=== PATIENT | male | born 1970 | race Caucasian/White ===

== ENCOUNTER 2025-03-17 17:35 | Emergency (ER) | payer OTHER ==
[~2025-03-17] VITALS: Ht 175.3 cm; Wt 106.5 kg
[2025-03-17 18:06] LABS: BASOPHILS 1.0 % (0.2-1.2); EOSINOPHILS 0.5 % (0.8-7.0); LYMPHOCYTES 17.9 % (21.8-53.1); MCH 32.6 PG (25.7-32.2); MCHC 34.1 g/dL (32.3-36.5); MCV 95.6 fL (79.0-92.2); MONOCYTES 10.4 % (5.3-12.2); NEUTROPHILS 70.0 % (34.0-67.9); RBC 2.73 M/uL (4.63-6.08)
[2025-03-17 18:16] LABS: INR 1.33 (0.80-1.30); PROTIME 16.0 Sec (11.2-14.2)
[2025-03-17 18:21] LABS: ALT (SGPT) 48.0 U/L (14-59); AST (SGOT) 54.0 U/L (15-37); GLOMERULAR FILTRATION RATE,EST 88.0 mL/min (>60); PROTEIN, TOTAL 6.5 g/dL (6.4-8.2); UREA NITROGEN 13.0 mg/dL (7-18)
[2025-03-17 18:47] LABS: ABO O; ANTIBODY SCREEN NEGATIVE; RH POSITIVE
[2025-03-17] MEDS ORDERED: MORPHINE SULFATE 4 MG/ML VIAL IV ONE (20:00)
[2025-03-17] MEDS ORDERED: TRANEXAMIC ACID IN NACL,ISO-OS 1,000 MG/100 ML PIGGYBACK IV ONE (21:00)
[2025-03-17] MEDS ORDERED: FUROSEMIDE 40 MG/4 ML VIAL IV ONE (21:00)
[2025-03-17] MEDS ORDERED: LASIX20 MG PO (21:14)
[2025-03-17] MEDS ORDERED: SPIRONOLACTONE25 MG PO (21:14)
[2025-03-17] MEDS ORDERED: LACTULOSE10 GM/15 M PO (21:14)
[2025-03-17] MEDS ORDERED: FERROUS SULFAT325 M2 PO (21:15)
[2025-03-17] MEDS ORDERED: PROPRANOLOL HCL10 MG PO (21:15)
[2025-03-17 21:16] LABS: IS CROSSMATCH COMPATIBLE
[2025-03-17 21:18] LABS: ABO O
[2025-03-17 21:19] LABS: RH POSITIVE
[2025-03-18 01:00] VITALS: BP 158/90
== END 2025-03-18 01:08 | disposition home or self-care (01) ==
LOC: ED 17:35
PROVIDERS: Emergency Medicine; Family Medicine
DX: K92.1 Melena (principal); K70.31 Alcoholic cirrhosis of liver with ascites; E11.9 Type 2 diabetes mellitus without complications; I10 Essential (primary) hypertension; Z91.040 Latex allergy status
CPT/HCPCS: 36415; 36430; 74177; 80053; 85025; 85610; 85730; 86850; 86900; 86901; 86922; 96375; 99285-25; J1938; J2270; J2405; P9016; Q9967

== ENCOUNTER 2025-03-24 14:50 | Emergency (ER) | payer OTHER ==
[~2025-03-24] VITALS: Ht 175.3 cm; Wt 110.8 kg
[~2025-03-24 14:50] MED LIST: FERROUS SULFAT325 M2 PO; LACTULOSE10 GM/15 M PO; LASIX20 MG PO; PROPRANOLOL HCL10 MG PO; SPIRONOLACTONE25 MG PO
--- OUTSIDE RECORDS SUMMARY | 2025-03-24 14:57 | XMS ---
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 [place] - 2 Visits in 30 Days CARE PROVIDERS There are no care providers on record at this time. Ramone has no Care Guidelines for this patient. Jud[facility] V[facility] (12 MO.) [facility] NOTE: Visits indicate total known visits. ED/C VISIT TRACKING (12 MO.) [facility]25 14[facility] [place] [facility] COMPLAINT: - BLOATING, SWELLING 03/17/2025 17:36 GAYLE Arboleda [place] TYPE: Emergency COMPLAINT: - ABDOM PAIN,BLOOD IN STOOL DIAGNOSES: - Abdominal distension (gaseous) - Alcoholic cirrhosis of liver with ascites - Essential (primary) hypertension - Latex allergy status - Melena - Type 2 diabetes mellitus without complications INPATIENT VISIT TRACKING (12 MO.) No inpatient visits to display in this time frame [email or web address]
[2025-03-24 15:26] LABS: BASOPHILS 1.7 % (0.2-1.2); EOSINOPHILS 1.0 % (0.8-7.0); LYMPHOCYTES 24.8 % (21.8-53.1); MCH 31.1 PG (25.7-32.2); MCHC 33.6 g/dL (32.3-36.5); MCV 92.6 fL (79.0-92.2); MONOCYTES 10.9 % (5.3-12.2); NEUTROPHILS 61.3 % (34.0-67.9); RBC 3.25 M/uL (4.63-6.08)
[2025-03-24 15:37] LABS: INR 1.32 (0.80-1.30); PROTIME 15.9 Sec (11.2-14.2)
[2025-03-24 15:45] LABS: ALT (SGPT) 36.0 U/L (14-59); AST (SGOT) 52.0 U/L (15-37); GLOMERULAR FILTRATION RATE,EST 79.0 mL/min (>60); PROTEIN, TOTAL 6.4 g/dL (6.4-8.2); UREA NITROGEN 12.0 mg/dL (7-18)
[2025-03-24] MEDS ORDERED: POTASSIUM CHLORIDE 10 MEQ/100 ML BAG IV SCH (16:45)
[2025-03-24] MEDS ORDERED: FUROSEMIDE 40 MG/4 ML VIAL IV ONE (16:45)
[2025-03-24 19:32] VITALS: BP 131/73
== END 2025-03-24 19:30 | disposition home or self-care (01) ==
LOC: ED 14:50
PROVIDERS: Emergency Medicine
DX: R60.1 Generalized edema (principal); R10.9 Unspecified abdominal pain; I10 Essential (primary) hypertension; E11.9 Type 2 diabetes mellitus without complications; Z91.040 Latex allergy status; Z79.899 Other long term (current) drug therapy
CPT/HCPCS: 36415; 80053; 83690; 85025; 85610; 96365; 96366; 96375; 99284-25; J1938; J3480

== ENCOUNTER 2025-03-29 18:35 | Emergency (ER) | payer OTHER ==
[~2025-03-29] VITALS: Ht 175.3 cm; Wt 110.0 kg
--- OUTSIDE RECORDS SUMMARY | 2025-03-29 18:42 | XMS ---
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 - 2 Visits in 30 Days CARE PROVIDERS There are no care providers on record at this time. Ramone has no Care Guidelines for this patient. Judie [facility] (12 MO.) [facility] NOTE: Visits indicate total known visits. 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
[2025-03-29] MEDS ORDERED: METFORMIN HCL750 MG PO (19:54)
[2025-03-29 20:13] LABS: BASOPHILS 1.1 % (0.2-1.2); EOSINOPHILS 0.8 % (0.8-7.0); LYMPHOCYTES 19.6 % (21.8-53.1); MCH 30.6 PG (25.7-32.2); MCHC 32.6 g/dL (32.3-36.5); MCV 94.0 fL (79.0-92.2); MONOCYTES 11.5 % (5.3-12.2); NEUTROPHILS 66.7 % (34.0-67.9); RBC 3.69 M/uL (4.63-6.08)
[2025-03-29 20:29] LABS: ALT (SGPT) 29.0 U/L (14-59); AST (SGOT) 48.0 U/L (15-37); GLOMERULAR FILTRATION RATE,EST 77.0 mL/min (>60); PROTEIN, TOTAL 7.0 g/dL (6.4-8.2); UREA NITROGEN 10.0 mg/dL (7-18)
[2025-03-29] MEDS ORDERED: POTASSIUM CHLORIDE 10 MEQ TABCR PO ONE (20:45)
[2025-03-29 21:03] VITALS: BP 163/83
== END 2025-03-29 21:04 | disposition home or self-care (01) ==
LOC: ED 18:35
PROVIDERS: Emergency Medicine
DX: R18.8 Other ascites (principal); I10 Essential (primary) hypertension; E11.9 Type 2 diabetes mellitus without complications; Z91.040 Latex allergy status; Z79.899 Other long term (current) drug therapy; Z79.84 Long term (current) use of oral hypoglycemic drugs
CPT/HCPCS: 36415; 80053; 83690; 85025; 99284; A9270

== ENCOUNTER 2025-06-02 01:08 | Emergency (ER) | payer OTHER ==
[~2025-06-02] VITALS: Ht 175.3 cm; Wt 110.0 kg
[~2025-06-02 01:08] MED LIST changes: +METFORMIN HCL750 MG PO
[2025-06-02 02:18] LABS: BASOPHILS 1.3 % (0.2-1.2); EOSINOPHILS 1.6 % (0.8-7.0); LYMPHOCYTES 25.5 % (21.8-53.1); MCH 27.1 PG (25.7-32.2); MCHC 33.0 g/dL (32.3-36.5); MCV 82.1 fL (79.0-92.2); MONOCYTES 13.2 % (5.3-12.2); NEUTROPHILS 58.1 % (34.0-67.9); RBC 3.40 M/uL (4.63-6.08)
[2025-06-02 02:33] LABS: ALT (SGPT) 13.0 U/L (14-59); AST (SGOT) 27.0 U/L (15-37); GLOMERULAR FILTRATION RATE,EST 47.0 mL/min (>60); PROTEIN, TOTAL 7.1 g/dL (6.4-8.2); UREA NITROGEN 25.0 mg/dL (7-18)
[2025-06-02 02:47] LABS: INR 1.3 (0.80-1.30); PROTIME 15.4 Sec (11.2-14.2)
[2025-06-02] MEDS ORDERED: OCTREOTIDE ACETATE 500 MCG in DEXTROSE 5% 250 ML IV SCH (03:00)
[2025-06-02] MEDS ORDERED: OCTREOTIDE ACETATE 100 MCG/ML VIAL IV ONE (03:00)
[2025-06-02] MEDS ORDERED: PANTOPRAZOLE SODIUM 40 MG/10 ML VIAL IV ONE (03:00)
[2025-06-02 03:51] LABS: ABO O; ANTIBODY SCREEN NEGATIVE; RH POSITIVE
[2025-06-02 05:04] VITALS: BP 144/78
== END 2025-06-02 05:07 | disposition short-term general hospital (02) ==
LOC: ED 01:08
PROVIDERS: Emergency Medicine
DX: K92.2 Gastrointestinal hemorrhage, unspecified (principal); K72.10 Chronic hepatic failure without coma; K70.30 Alcoholic cirrhosis of liver without ascites; I10 Essential (primary) hypertension; E11.9 Type 2 diabetes mellitus without complications; Z91.040 Latex allergy status; Z79.84 Long term (current) use of oral hypoglycemic drugs; Z79.899 Other long term (current) drug therapy
CPT/HCPCS: 36415; 80053; 83690; 83735; 85025; 85610; 85730; 86850; 86900; 86901; 96374; 96375; 99284-25; J2354-JA; J2470; J7060